=== PATIENT | female | born 1950 | race Caucasian/White ===

== ENCOUNTER 2018-09-03 15:24 | Emergency (ER) | payer MEDICARE ==
[2018-09-03 15:40] VITALS: BP 142/82; PULSE 66; O2SAT 97
[2018-09-03 15:45] LABS: BASOPHIL % 0.3 % (0.0-0.4); Basophil (Absolute #) 0.02 (0-0.4); Eosinophil % 1.5 % (0.00-5.0); Eosinophil (Absolute #) 0.09 (0-0.5); Granulocyte Absolute (ANC) 3.72 (1.4-6.9); Granulocytes % 62.2 % (36.0-66.0); Hematocrit 39.5 % (35-47); Hemoglobin 12.6 gm/dl (12.0-16.0); Lymphocyte (Absolute #) 1.57 (1.0-4.6); Lymphocytes % 26.2 % (24.0-44.0); Mean Cell Volume 89.4 fl (78-100); Mean Corpuscular Hemoglobin 28.5 pg (26-32); Mean Corpuscular Hgb Concent. 31.9 g/dl (32-36); Mean Platelet Volume 10.6 fl (6-9.5); Monocyte (Absolute #) 0.59 (0.0-1.3); Monocytes % 9.8 % (0.0-12.0); Platelet Count 250 K/mm3 (150-450); Red Blood Count 4.42 M/mm3 (4.1-5.4); Red Cell Distribution Width 14.2 % (11.5-14.0)
--- NOTE | 2018-09-03 15:50 | ERPHSYRPT ---
- History of Present Illness Time Seen by Provider: 09/03/18 15:35 Historian: patient Exam Limitations: no limitations Patient Subjective Stated Complaint: Pt states "I was vacuuming and I had a sudden sharp pain in my chest and it went up into my left shoulder. I really do not hurt now, but I also have some belly problems and I am a bariatric surgery patient and I was headed up there after work today, up to [place], but now I am here." Triage Nursing Assessment: Pt alert and oriented X 3, skin pwd. Pt ambulates with an upright steady gait, able to speak in full clear sentences. Pt in no apprent respiratory distress. Physician History: 67-year-old white female with history of atherosclerotic coronary artery disease hypertrophic cardiomyopathy high blood pressure PVCs as well as pancreatitis. Patient arrives with complaint of pain in her left shoulder radiating to her anterior sternal region not associated with shortness of breath no nausea Patient states pain began at approximately 2:00 this afternoon this resolved after medics showed up and gave the patient aspirin. Patient does state that she has a history of a bariatric surgery and has been having pain in the epigastric region since last Monday which is been continuous. She had considered going to [facility]. Pain apparently came on while she was vacuuming. Past medical history includes atherosclerotic coronary artery disease, hypertrophic cardiomyopathy, high blood pressure, PVCs, pancreatitis. Fibromyalgia. Past surgical history includes cholecystectomy, bariatric surgery, lithotripsy, kidney stones, Social history patient denies tobacco use she states she uses occasional alcohol use she denies illicit drug use. Timing/Duration: other (epigastric pain since ONE MONTH WORSE SINCE Monday. LEFT SHOULDER AND SUBSTERNAL PAIN AT 2:00 THIS AFTERNOONRESOLVED) Activities at Onset: other (vacuuming) Quality: dullness, sharpness Location: substernal, shoulder (left shoulder) Chest Pain Radiation: arm (left shoulder) Severity of Pain-Max: moderate Severity of Pain-Current: none Modifying Factors: Improves With: other (patient given aspirin 324 mg by medics) Associated Symptoms: abdominal pain (epigastric pain x 1 month), No nausea, No vomiting, No palpitations, No heartburn Nitro Today/Relief: no nitro taken today Aspirin Treatment Today: 81 mg x 4, provided by EMS Allergies/Adverse Reactions: ciprofloxacin [From Cipro] Allergy (Severe, Verified 09/03/18 15:42) hydromorphone [From Dilaudid] Allergy (Intermediate, Verified 09/03/18 15:42) metronidazole [From Flagyl] Allergy (Intermediate, Verified 09/03/18 15:42) Sulfa (Sulfonamide Antibiotics) Allergy (Intermediate, Verified 09/03/18 15:42) Home Medications: Hydrocodone/Acetaminophen [Hydrocodone-Acetamin 10-325 mg] 1 tab PO DAILY PRN [History] LORazepam [Lorazepam] 1 mg PO HS 09/03/18 [History] Metoprolol Succinate 100 mg [Toprol Xl 100 MG] 100 mg PO DAILY 09/03/18 [ History] Nitrofurantoin Monohyd/M-Cryst [Nitrofurantoin Mcpherson-Mcr 100 mg] 100 mg PO BID [History] Omeprazole 40 mg PO DAILY 09/03/18 [History] hydroCHLOROthiazide [Hydrochlorothiazide] 25 mg PO DAILY 09/03/18 [History] Hx Tetanus, Diphtheria Vaccination/Date Given: No Hx Influenza Vaccination/Date Given: No Hx Pneumococcal Vaccination/Date Given: No Immunizations Up to Date: Yes - Review of Systems Constitutional: No Fever, No Chills Eyes: No Symptoms Ears, Nose, & Throat: No Symptoms Respiratory: No Cough, No Dyspnea Cardiac: Chest Pain Abdominal/Gastrointestinal: Abdominal Pain (epigastric pain), No Nausea, No Vomiting, No Diarrhea, No Constipation, No Hematemesis, No Hematochezia, No Melena, No Dysphagia, No Appetite Changes Genitourinary Symptoms: No Dysuria Musculoskeletal: No Back Pain, No Neck Pain Skin: No Symptoms Neurological: No Dizziness, No Focal Weakness, No Sensory Changes Psychological: No Symptoms Endocrine: No Symptoms All Other Systems: Reviewed and Negative - Past Medical History Pertinent Past Medical History: Yes Other Medical History: abdominal issues, depression, hypertension, pacreatitis, myocardial hypertrophy, PVC, fibromyalgia, - Past Surgical History Past Surgical History: Yes Other Surgical History: bariatric. vj. lithoripsy. kidney stone - Social History Smoking Status: Never smoker Exposure to second hand smoke: Yes Drug Use: none Patient Lives Alone: Yes - Nursing Vital Signs Nursing Vital Signs: Initial Vital Signs Temperature 98.6 F 09/03/18 15:24 Pulse Rate 70 11/12/18 15:24 Respiratory Rate 16 09/03/18 15:24 Blood Pressure 142/82 09/03/18 15:24 O2 Sat by Pulse Oximetry 97 09/03/18 15:24 Pain Scale Pain Intensity 2 - Physical Exam General Appearance: no apparent distress, alert Eye Exam: PERRL/EOMI, eyes nml inspection Ears, Nose, Throat Exam: normal ENT inspection, moist mucous membranes Neck Exam: normal inspection, non-tender, supple, full range of motion Respiratory Exam: normal breath sounds, lungs clear, No respiratory distress Cardiovascular Exam: regular rate/rhythm, normal heart sounds Gastrointestinal/Abdomen Exam: soft, No tenderness, No mass Back Exam: normal inspection, No CVA tenderness, No vertebral tenderness Extremity Exam: normal inspection, normal range of motion Neurologic Exam: alert, oriented x 3, cooperative, events traffic controller II-XII nml as tested, normal mood/affect, sensation nml, No motor deficits Skin Exam: normal color, warm, dry SpO2 Interpretation: normal (97%him) SpO2: 97 Oxygen Delivery: Room Air - Course Nursing assessment & vital signs reviewed: Yes EKG Interpreted by Me: RATE (61 bpm), Sinus Rhythm, NORMAL AXIS, Other (EKG: Sinus rhythm, 61 bpm, normal axis, left delay, T wave inversion in leads 1 aVL and V3 through V6 also leads 2 and AVF) - Radiology Exams Chest X-ray Interpretation: Discussed w/ radiologist (left lung discoid atelectasis. negative acute pulmonic process.) Ordered Tests: Active Orders 24 hr Category Date Time Status Frame Changer STAT Care 09/03/18 15:33 Active EKG-ER Only STAT Care 09/03/18 15:33 Active IV Insertion STAT Care 09/03/18 15:33 Active Pulse Oximetry (ED) STAT Care 09/03/18 15:33 Active CHEST 1 VIEW (PORTABLE) Stat Exams 09/03/18 15:33 Completed AMYLASE Stat Lab 09/03/18 15:35 Completed CBC W DIFF Stat Lab 09/03/18 15:35 Completed CMP Stat Lab 09/03/18 15:35 Completed D-DIMER QUANTITATION Stat Lab 09/03/18 15:35 Completed LIPASE Stat Lab 09/03/18 15:35 Completed PROTIME WITH INR Stat Lab 09/03/18 15:35 Completed PTT Stat Lab 09/03/18 15:35 Completed TROPONIN Q3H Lab 09/03/18 15:35 Completed TROPONIN Q3H Lab 09/03/18 18:45 Ordered TROPONIN Q3H Lab 09/03/18 21:45 Ordered TROPONIN Q3H Lab 09/04/18 00:45 Ordered TROPONIN Q3H Lab 09/04/18 03:45 Ordered Lab/Rad Data: Laboratory Result Diagrams 09/03/18 15:35 09/03/18 15:35 Laboratory Results 09/03/18 09/03/18 09/03/18 Range/Units 15:35 15:35 15:35 WBC (4.0-10.5) K/mm3 RBC (4.1-5.4) M/mm3 Hgb (12.0-16.0) gm/dl Hct (35-47) % MCV (78-100) fl MCH (26-32) pg MCHC (32-36) g/dl RDW (11.5-14.0) % Plt Count (150-450) K/mm3 MPV (6-9.5) fl Gran % (36.0-66.0) % Eos # (Auto) (0-0.5) Absolute Lymphs (auto) (1.0-4.6) Absolute Monos (auto) (0.0-1.3) Lymphocytes % (24.0-44.0) % Monocytes % (0.0-12.0) % Eosinophils % (0.00-5.0) % Basophils % (0.0-0.4) % Absolute Granulocytes (1.4-6.9) Basophils # (0-0.4) PT 12.2 (9.95-12.35) SECONDS INR 1.05 (0.8-3.0) APTT 28.5 (25.3-37.0) SECONDS D-Dimer 786 H* (215-500) ng/mL Sodium 138 (137-145) mmol/L Potassium 4.0 (3.5-5.1) mmol/L Chloride 103 (98-107) mmol/L Carbon Dioxide 23 (22-30) mmol/L Anion Gap 16.2 H (5-15) MEQ/L BUN 25 H (7-17) mg/dL Creatinine 1.12 H (0.52-1.04) mg/dL Estimated GFR 51.7 ML/MIN Glucose 97 (74-106) mg/dL Calcium 9.5 (8.4-10.2) mg/dL Total Bilirubin 0.40 (0.2-1.3) mg/dL AST 39 H (14-36) U/L ALT 31 (0-35) U/L Alkaline Phosphatase 118 (38-126) U/L Troponin I < 0.012 (0.000-0.034) ng/mL Serum Total Protein 7.5 (6.3-8.2) g/dL Albumin 4.5 (3.5-5.0) g/dL Amylase 72 (30-110) U/L Lipase 439 H (23-300) U/L 11/12/18 Range/Units 15:35 WBC 6.0 (4.0-10.5) K/mm3 RBC 4.42 (4.1-5.4) M/mm3 Hgb 12.6 (12.0-16.0) gm/dl Hct 39.5 (35-47) % MCV 89.4 (78-100) fl MCH 28.5 (26-32) pg MCHC 31.9 L (32-36) g/dl RDW 14.2 H (11.5-14.0) % Plt Count 250 (150-450) K/mm3 MPV 10.6 H (6-9.5) fl Gran % 62.2 (36.0-66.0) % Eos # (Auto) 0.09 (0-0.5) Absolute Lymphs (auto) 1.57 (1.0-4.6) Absolute Monos (auto) 0.59 (0.0-1.3) Lymphocytes % 26.2 (24.0-44.0) % Monocytes % 9.8 (0.0-12.0) % Eosinophils % 1.5 (0.00-5.0) % Basophils % 0.3 (0.0-0.4) % Absolute Granulocytes 3.72 (1.4-6.9) Basophils # 0.02 (0-0.4) PT (9.95-12.35) SECONDS INR (0.8-3.0) APTT (25.3-37.0) SECONDS D-Dimer (215-500) ng/mL Sodium (137-145) mmol/L Potassium (3.5-5.1) mmol/L Chloride (98-107) mmol/L Carbon Dioxide (22-30) mmol/L Anion Gap (5-15) MEQ/L BUN (7-17) mg/dL Creatinine (0.52-1.04) mg/dL Estimated GFR ML/MIN Glucose (74-106) mg/dL Calcium (8.4-10.2) mg/dL Total Bilirubin (0.2-1.3) mg/dL AST (14-36) U/L ALT (0-35) U/L Alkaline Phosphatase (38-126) U/L Troponin I (0.000-0.034) ng/mL Serum Total Protein (6.3-8.2) g/dL Albumin (3.5-5.0) g/dL Amylase (30-110) U/L Lipase (23-300) U/L - Progress Progress: improved Air Movement: fair Progress Note: 09/03/18 16:24 This is a 67-year-old white female with history of atherosclerotic coronary disease, hyper trophic cardiomyopathy, high blood pressure, PVCs, pancreatitis. She states that she has had a month of epigastric pain which was much worse last Monday 3 days ago. There is no shortness of breath no nausea. She states that she was vacuuming at 2:00 this afternoon when she began to have a pain in her left shoulder radiating to her sternum which was described as both sharp and dull not associated with shortness of breath. This resolved after the medics gave the patient aspirin in route to the hospital. On the patient's EKG she is noted to have T-wave inversions in lead 12 and aVL and aVF leads V1 through V6 I do not have an old EKG for comparison patient apparently goes to [place] in the past for her heart and has also seen Dr. Gresham she states she hasn't seen Dr. Gresham for [address] Alondra Harris but does not want to go to [place]. Patient's chest x-ray is remarkable for discoid atelectasis in the left llung Patient's labs troponin within normal limits less than 0.012 Patient's chemistry sodium 138 potassium 4.0 chloride 103 bicarbonate 23 BUN 25 creatinine 1.12 glucose 97 patient with a GFR of 51.7. CBC White blood cell 6.0 hemoglobin 12.6 hematocrit 39.5 platelets 250 Patient's amylase is 72 lipase is 439 which is elevated d-dimer is 786 which is elevated. Patient does not have tachycardia nor does she have shortness of breath. Patient's vitals are stable. I have recommended that the patient needs to be ruled out for cardiac etiology based on both her EKG and her history of hypertrophic cardiomyopathy. Although she has had pain in her epigastric region for a month which was worse 2 days ago today she had a new pain in her left shoulder radiating to her sternum which is concerning for cardiac disease. The patient insists that she does not want to be transferred for any treatment. She does state that she wants to go to [facility] where she was treated for bariatric surgery and she wanted to have her friends take her to this hospital. I have offered to call [facility] and [facility] for possible transfer he she does not want this. Will have patient sign out AGAINST MEDICAL ADVICE. I have warned her that if this is a cardiac etiology she could have severe consequences which could actually be fatal she does have mild elevation in her lipase however amylase is within normal limits other labs are essentially normal. Patient states she is aware of the risks with to have outlined with her and insists on leaving AGAINST MEDICAL ADVICE. . . - Departure Time of Disposition: 16:29 Departure Disposition: AMA Clinical Impression: History of hypertrophic cardiomyopathy, Elevated lipase, History of bariatric surgery Chest pain Qualifiers: Chest pain type: unspecified Qualified Code(s): R07.9 - Chest pain, unspecified Condition: Fair Critical Care Time: No Referrals: JENN ROBERTSON FNP [Primary Care Provider] - Additional Instructions: Your leaving AGAINST MEDICAL ADVICE., I have recommended that you have further evaluation to rule out cardiac etiology for your condition you have chose to leave. If your condition this caused by cardiac etiology leaving could result in severe consequences up to and including . Follow-up with your family doctor. Return for acute distress or for severe symptoms.
[2018-09-03 15:57] LABS: INR 1.05 (0.8-3.0)
[2018-09-03 15:59] LABS: PTT 28.5 SECONDS (25.3-37.0)
[2018-09-03 16:01] LABS: ALBUMIN 4.5 g/dL (3.5-5.0); ANION GAP 16.2 MEQ/L (5-15); BILIRUBIN,TOTAL 0.4 mg/dL (0.2-1.3); Calcium 9.5 mg/dL (8.4-10.2); Creatinine 1 1.12 mg/dL (0.52-1.04); Total Protein 7.5 g/dL (6.3-8.2)
--- NOTE | 2018-09-03 16:22 | XRAY ---
Indication: Chest and left shoulder pain. Comparison: None Portable chest demonstrates left midlung discoid atelectasis. Remaining heart and lungs normal. Bony thorax intact with mild degenerative changes. Impression: Left lung discoid atelectasis. Negative acute pneumonic process or CHF.
== END 2018-09-03 16:45 | disposition left against medical advice (07) ==
LOC: ED 15:24
DX: R07.9 Chest pain, unspecified (principal); M25.512 Pain in left shoulder; R79.89 Other specified abnormal findings of blood chemistry; R10.13 Epigastric pain; Z98.84 Bariatric surgery status; Z79.899 Other long term (current) drug therapy
CPT/HCPCS: 36000; 36415; 71045; 80053; 82150; 83690; 84484; 85025; 85379; 85610; 85730; 93005; 93041; 99284